=== PATIENT | female | born 1985 | race Caucasian/White ===

== ENCOUNTER 2017-10-05 15:59 | Emergency (ER) | payer SELFPAY ==
[2017-10-05] MEDS: KETOROLAC 60 MG/2 ML INJ. IM (16:46)
[2017-10-06 10:21] LABS: URINE HCG POC HCG NEGATIVE (Negative)
== END 2017-10-05 16:49 | disposition home or self-care (01) ==
LOC: ER 15:59
DX: M54.5 Low back pain (principal); Z98.51 Tubal ligation status
CPT/HCPCS: 81025; 96372; 99283; J1885